=== PATIENT | female | born 1970 | race Caucasian/White ===

== ENCOUNTER 2024-05-01 18:13 | Emergency (ER) | payer MEDICAID ==
[~2024-05-01] VITALS: Ht 160 cm; Wt 55.0 kg
[2024-05-01 18:15] VITALS: TEMP 36.4; O2SAT 100
[2024-05-01] MEDS: IBUPROFEN 600MG TABLET PO STA (18:59)
[2024-05-01] MEDS: ONDANSETRON 4MG ODT PO STA (18:59)
[2024-05-01] MEDS: ACETAMINOPHEN 325MG TABLET PO STA (18:59)
[2024-05-01 19:40] LABS: BASOPHILS % 0.4 % (0.0-2.0); HEMATOCRIT. 41.7 % (36.0-48.0); HEMOGLOBIN. 13.6 g/dL (12.0-16.0); MEAN CORPUSCULAR HEMOGLOBIN 30.6 pg (28.0-32.0); MEAN CORPUSCULAR HGB CONC 32.6 g/dL (31.0-37.0); MEAN PLATELET VOLUME 9.4 fl (7.4-10.4); NEUTROPHILS % 80.6 % (40.0-76.0); PLATELET 287 x1000/uL (130-400); RED BLOOD CELL COUNT 4.44 mill/uL (4.2-5.4); RED CELL DISTRIBUTION WIDTH 13.7 % (11.6-14.6); WHITE BLOOD COUNT 13.4 x1000/uL (4.5-11.0)
[2024-05-01 19:46] LABS: CHLORIDE 102 mEq/L (98-107); POTASSIUM 4.3 mEq/L (3.5-5.1); SODIUM 142 mEq/L (136-145)
[2024-05-01 19:47] LABS: CARBON DIOXIDE 26 mEq/L (21-32)
[2024-05-01 19:48] LABS: CALCIUM 9.8 mg/dL (8.7-10.4)
[2024-05-01 19:52] LABS: CREATININE 0.9 mg/dL (0.6-1.0); GLUCOSE 67 mg/dL (70-105); UREA NITROGEN BLOOD 13 mg/dL (9-23)
[2024-05-01 19:59] LABS: CLARITY URINE CLOUDY (CLEAR); COLOR URINE YELLOW (YELLOW); GLUCOSE URINE NEGATIVE (NEGATIVE); KETONES URINE 1+ (NEGATIVE); LEUKOCYTE ESTERASE URINE 1+ (NEGATIVE); NITRITE URINE POSITIVE (NEGATIVE); OCCULT BLOOD URINE 1+ (NEGATIVE); PROTEIN URINE 1+ (NEGATIVE); SPECIFIC GRAVITY URINE 1.018 (1.005-1.030); UROBILINOGEN URINE 0.2 E.U./dL (0.2-1.0)
[2024-05-01] MEDS ORDERED: CEPH500T MT (20:07)
[2024-05-01 20:12] LABS: BACTERIA URINE 1+; FINE GRANULAR CASTS URINE 0-5 /lpf; RBC URINE 0-2 /hpf (0-2); SQUAMOUS EPITHELIAL CELL URINE 1+ /lpf (RARE/1+)
[2024-05-01 20:22] VITALS: BP 165/60; PULSE 61; RESP 16; O2SAT 98
[2024-05-01 20:22] LABS: INFLUENZA TYPE A Presumptive Negative (Pres. Neg.)
[2024-05-01 20:23] LABS: INFLUENZA TYPE B Presumptive Negative (Pres. Neg.)
[2024-05-01 20:24] LABS: RESPIRATORY SYNCYTIAL VIRUS Not Detected (Not Detectd)
== END 2024-05-01 20:22 | disposition home or self-care (01) ==
LOC: ER 18:13
DX: N39.0 Urinary tract infection, site not specified (principal); B34.9 Viral infection, unspecified; Z20.822 Contact with and (suspected) exposure to COVID-19
CPT/HCPCS: 99284; 71045; 87426; 80048; 81003; 85025; 87420; 87804 ×2; 36415; Q0162